=== PATIENT | male | born 1950 | race Caucasian/White ===

== ENCOUNTER → 2020-04-07 | Outpatient (CLI) | payer MEDICARE ==
[~2020-04-07] MED LIST: LISI-167 PO; MARINOL PO
== END | disposition home or self-care (01) ==
LOC: STAR 11:46
PROVIDERS: ATTEND Internal Medicine Gastroenterology
DX: Z20.828 Contact with and (suspected) exposure to other viral communicable diseases (principal)
CPT/HCPCS: 36415; 80053; 87635; 93005

== ENCOUNTER 2020-04-13 05:58 | Day surgery (SDC) | payer MEDICARE ==
[2020-04-07 13:49] LABS: CHLORIDE 107 mmol/L (98-107)
[2020-04-07 14:01] LABS: ALANINE AMINOTRANSFERASE 31 U/L (12-78); ALBUMIN 4.1 g/dL (3.4-5.0); ALKALINE PHOSPHATASE 111 U/L (45-117); ANION GAP 7 mmol/L (5-15); BILIRUBIN,TOTAL 0.7 mg/dL (0.2-1.0); CALCIUM 9.3 mg/dL (8.5-10.1); CREATININE 0.87 mg/dL (0.7-1.3); TOTAL PROTEIN 7.4 g/dL (6.4-8.2)
[~2020-04-13] VITALS: Ht 170.2 cm; Wt 85.0 kg
[2020-04-13] MEDS ORDERED: CHLORHEXIDINE 15 ML UDC MM STA (06:40)
[2020-04-13] MEDS ORDERED: CHLORHEXIDINE 15 ML UDC ONE (06:51)
[2020-04-13] MEDS ORDERED: LACTATED RINGERS 1,000 ML IV SCH (07:00)
[2020-04-13] MEDS ORDERED: PROPOFOL 50 ML ONE (07:44)
== END 2020-04-13 09:45 | disposition home or self-care (01) ==
LOC: OUT 05:58
PROVIDERS: ATTEND Internal Medicine Gastroenterology
DX: C15.4 Malignant neoplasm of middle third of esophagus (principal); K22.2 Esophageal obstruction; K44.9 Diaphragmatic hernia without obstruction or gangrene; I10 Essential (primary) hypertension; Z88.0 Allergy status to penicillin
CPT/HCPCS: 43237; 43248; J2704; J7120; 36415; 80053; 93005